=== PATIENT | female | born 1990 | race American Indian/Alaskan Native ===

== ENCOUNTER 2017-06-16 06:14 | Observation (INO) | payer MEDICAID ==
[2017-06-16] MEDS ORDERED: Lactated Ringers 1,000 ML IV ONE (06:30)
[2017-06-16 07:24] LABS: CHLORIDE,CL 105 mmol/L (101-111); SODIUM,NA 134 mmol/L (135-145)
[2017-06-16] MEDS ORDERED: Acetaminophen 325 MG Tab PO PRN (08:00)
[2017-06-16] MEDS ORDERED: Ondansetron 4 MG/2 ML SDV IV PRN (08:00)
[2017-06-16] MEDS ORDERED: Tranexamic Acid 1,000 MG in Sodium Chloride 0.9% 100 ML IV PRN (08:00)
[2017-06-16] MEDS ORDERED: Docusate Sodium 100 MG Cap PO PRN (08:00)
[2017-06-16] MEDS: Lactated Ringers 1,000 ML IV SCH ×2 (08:30→16:47)
[2017-06-16] MEDS: Aztreonam 1 GM in Sodium Chloride 0.9% 100 ML IV SCH ×2 (10:00→16:47)
--- NOTE | 2017-06-16 15:13 | HP ---
PATIENT IDENTIFICATION: Cori Higginbotham is a 26-year-old, G7, P5-0-1-5, previous x5, intrauterine around 20 weeks by what she says with ultrasound earlier this week, who presents with abdominal pain. HISTORY OF PRESENT ILLNESS: The patient awoke with abdominal pain on the right side of her abdomen in the flank radiating down anteriorly, severe enough that it woke her, associated with some vomiting, and is constant in nature. Associated with this, she describes occasional contractions felt. To put this in context, she has had 5 previous C-sections. She has history of drug use in the past and admits to taking some Percocet for her too and believes her coffee was laced with methamphetamines when addressing her positive drug screen. She denies any fevers currently. Records were called for, reviewed as below, and supplemented by patient history. ALLERGIES: Penicillin leads to hives. Has never had any cephalosporins by my record's review. PAST MEDICAL/PAST SURGICAL HISTORY: History of x5. No other surgeries elicited. She has had past medical history of chickenpox in the past. Large for gestational age fetus. Chlamydia in 2008. FAMILY HISTORY: Mother and maternal grandmother with breast cancer. Diabetes in maternal grandmother. Hypertension in mother and maternal grandmother. Negative family history of defects, anesthesia problems, bleeding problems, or inflammatory bowel disease. SOCIAL HISTORY: The patient lives in the [facility] with her male partner and her children. She initially denied drug use, but then describes the above under HPI when addressing her positive drug screen. She denies smoking at this time. MEDICATIONS: 1. vitamins and Macrobid from [facility] earlier this week. 2. Admits to drug use as above. REVIEW OF SYSTEMS: Otherwise, fully reviewed and felt to be noncontributory. The patient denies any spotting, bleeding, or leaking. When further asked with serial evaluations, she denies any contractions. She denies any problems with bowel or bladder habits. No blood in her stools. No chills or sweats. No chest pain. No shortness of breath. Otherwise, review of systems reviewed fully and felt to be noncontributory. OBJECTIVE: Vital Signs: Blood pressure 92/57, heart rate 72, and temperature 97.5. Appearance: Female, appears her stated age, curled up in a ball, in left lateral decubitus position but unable to straighten out for ultrasound and evaluations with minimal elicited pain. HEENT: Head is atraumatic. EOMs intact. PERRLA. No scleral icterus. No otorhinorrhea. Mucous membranes are moist. Neck: No obvious tenderness. Lungs: Clear to auscultation bilaterally. No increased work of breathing. Heart: S1 and S2. Regular rate and rhythm. Abdomen: Gravid. Zach's indeterminate. Minimally tender in the right side of the abdomen, mid abdomen area. No rebound, rigidity, or guarding. No other organomegaly, pulsatile masses, or obvious hernias. Back: Evaluation does reveal right-sided flank pain with percussion. Genitourinary: Normal external female genitalia. Normal position and presentation of the urethra. Vaginal exam reveals her to be closed, thick, and high. No obvious pain with vaginal exam. No CMT. Extremities: No peripheral edema. Deep tendon reflexes 2 to 3/4 bilaterally and symmetric in lower extremities. Psychiatric: Mood and affect are congruent. Judgement and insight are intact. Skin: Without any cyanosis, clubbing, or jaundice. heart tones were Dopplered, within a normal range. Please see nurse's note in regard to this. Tocometer reveals no obvious evidence of contractions. IMAGING: Ultrasound reviewed by my eyes and evaluated with the tech doing it does reveal what appears to be a posterior placenta. No obvious previa. SARIKA 14.4 and puts her dates at 20 weeks and 5 days. Further ultrasound was done of the right upper quadrant and right kidney region, did reveal a kidney stone. The right kidney by tech did reveal no concerns for hydronephrosis. LABORATORY DATA: White cell count 11.1, hemoglobin 10.2, platelets 240. CMP remarkable for low sodium at 134, potassium 3.2, BUN 5, creatinine 0.4, calcium 8.1, total protein 6.3, and albumin 2.8. Urinalysis with trace intact blood, positive nitrites, small leukocyte esterase, 20 to 30 white cells, and many epithelial and bacterial cells. Urine drug screen positive for oxycodone, methamphetamine, amphetamine, and THC. ASSESSMENT: 1. Intrauterine at 20 and 5/7 weeks' per ultrasound upon admit. 2. Abdominal pain/flank pain, suspect early pyelonephritis based on the patient's symptoms. 3. The patient has been on Macrobid, suspected urinary tract infection with first OB visit at [facility] earlier this week. This would not cover if she develops pyelonephritis. We will culture her urine, and due to her allergy of hives to penicillins but no documented cephalosporin use, we will use aztreonam 1 g IV q.8h. Culture her urine. Continue IV fluids and follow closely. 4. Previous x5. 5. Positive urine drug screen for oxycodone, methamphetamine, amphetamine, and THC with confirmatory to be testing and tramadol ordered as well. 6. G7, P5-0-1-5. PLAN: Admit. IV fluids. Advance diet. Follow closely heart tones every shift. Please see orders for further details as well. She will be currently admitted as observation status. The patient understands and agrees with the above treatment plan. Repeat labs in the morning. Please see orders as well. [facility] /[id number]
[2017-06-17] MEDS: Aztreonam 1 GM in Sodium Chloride 0.9% 100 ML IV SCH ×2 (01:11→09:15)
[2017-06-17] MEDS: Lactated Ringers 1,000 ML IV SCH (01:12)
[2017-06-17 06:34] LABS: CHLORIDE,CL 108 mmol/L (101-111); SODIUM,NA 134 mmol/L (135-145)
[2017-06-17 09:53] VITALS: BP 96/50
--- NOTE | 2017-06-17 14:02 | DISCH ---
DATE: 06/17/2017 SUBJECTIVE: The patient was seen on 06/17/2017 at [facility]. The patient is hospital day #2. This is a G7, P5, with a history of 5 C-sections, at 20 weeks and 6 days dated by an ultrasound done yesterday, who is admitted for pyelonephritis. She was given aztreonam 1 g every 8 hours. The patient this morning is having less discomfort and no obstetrical complaints. PHYSICAL EXAMINATION: Vital Signs: She is afebrile. Heart rate 69 to 88, blood pressure 86 to 109 over 45 to 63, respiratory rate 16 to 20, and O2 saturations 99%. Abdomen: Benign. heart tones were obtained. LABORATORY DATA: The patient's white count has gone down this morning from 11.1 to 6.3. She does have mild anemia with a hemoglobin of 9.5. Her potassium has also come up from 3.3 to 3.7. The rest of her chemistries are normal. Yesterday, the patient did have a positive UDS for oxycodone, THC, amphetamines, and methamphetamines, the confirmation is pending. ASSESSMENT AND PLAN: Intrauterine at 20 weeks and 6 days with resolving pyelonephritis, history of five C-sections. I did strongly encourage the patient to make an appointment next week with [facility] for continuing with care. labs were done at [facility]. We are still awaiting those records. However, I feel as though she is now safe for discharge home on p.o. antibiotics. Therefore, I did give a prescription for Macrobid 100 mg p.o. b.i.d. for 7 days. She will call first thing in Monday and make an appointment to continue with care, and we will await the confirmation of her UDS. [facility] /[id number] LYNETTE
== END 2017-06-17 10:47 | disposition home or self-care (01) ==
LOC: DL.OBCHECK 06:14 → DL.MS 06:30 → EEVIPCON 06:30 → DL.MS 08:00 → UNDOADMOB 08:00
PROVIDERS: ADMIT Family Medicine; ATTEND Family Medicine
DX: O23.02 Infections of kidney in pregnancy, second trimester (principal); Z3A.20 20 weeks gestation of pregnancy; Z98.890 Other specified postprocedural states; Z88.0 Allergy status to penicillin
CPT/HCPCS: 36415; 76815; 80048; 80053; 80305; 80307; 81001; 82150; 85025; 85027; 86850; 86900; 86901; 87086; 87088; 87186; A9270; G0480; J7050; J7120; 96361; 96365; 96366; 96376; G0378; S0073

== ENCOUNTER 2017-06-29 19:50 | Emergency (ER) | payer MEDICAID ==
[2017-06-29] MEDS ORDERED: Sodium Chloride 0.9% 1,000 ML IV ONE (19:55)
[2017-06-29 20:25] LABS: ANION GAP 12.8; CHLORIDE,CL 105 mmol/L (101-111); SODIUM,NA 134 mmol/L (135-145)
[2017-06-29 21:43] VITALS: BP 106/73
--- NOTE | 2017-06-29 22:33 | EDM.PDOC ---
ED HPI GENERAL MEDICAL PROBLEM - General Chief Complaint: Abdominal Pain Stated Complaint: rt flank pain Time Seen by Provider: 06/29/17 19:50 Source of Information: Reports: Patient, EMS History Limitations: Reports: No Limitations - History of Present Illness INITIAL COMMENTS - FREE TEXT/NARRATIVE: ED via [facility] with c/o right flank and lower abdominal pain. [address] [facility]. Patient picked up today while walking to follow up check for recent UTI and kidney infection. No vomiting or fever, has noted intermittent pink discharge. Within few minutes of arrival patient resting comfortably, no longer yelling. Visiting with svp chief marketing officer. Right Lower Abdomen Pain Score (Numeric/FACES): 8 - Related Data Allergies Allergy/AdvReac Type Severity Reaction Status Date / Time Penicillins Allergy Rash Verified 06/29/17 19:54 Home Meds: Home Meds Vit #108/Iron/FA [ One Tablet] 1 tab PO DAILY 01/28/14 [History ] Nitrofurantoin Monohyd/M-Cryst [Macrobid 100 mg Capsule] 100 mg PO BID 06/29/17 [History] Past Medical History - Past Health History Medical/Surgical History: Denies Medical/Surgical History HEENT History: Reports: None Cardiovascular History: Reports: None Respiratory History: Reports: None Gastrointestinal History: Reports: Cholelithiasis Genitourinary History: Reports: UTI, Recurrent [employer] History: Reports: , Spontaneous , Other (See Below) Other OB/BYN History: CHLAMYDIAL INFECTION OF LOWER GENITOURINARY TRACT Musculoskeletal History: Reports: None Neurological History: Reports: None Psychiatric History: Reports: None Endocrine/Metabolic History: Reports: None Hematologic History: Reports: Anemia Other Hematologic History: ANEMIA IN Immunologic History: Reports: None Oncologic (Cancer) History: Reports: None Dermatologic History: Reports: None - Infectious Disease History Infectious Disease History: Reports: MRSA - Past Surgical History Head Surgeries/Procedures: Reports: None HEENT Surgical History: Reports: None Cardiovascular Surgical History: Reports: None Respiratory Surgical History: Reports: None GI Surgical History: Reports: None Female Surgical History: Reports: Section, D&C Neurological Surgical History: Reports: None Musculoskeletal Surgical History: Reports: None Oncologic Surgical History: Reports: None Dermatological Surgical History: Reports: None Social & Family History - Family History Family Medical History: Noncontributory - Tobacco Use Smoking Status *Q: Never Smoker Years of Tobacco use: 7 Packs/Tins Daily: 0.5 Used Tobacco, but Quit: No Month/Year Tobacco Last Used: Second Hand Smoke Exposure: No - Caffeine Use Caffeine Use: Reports: None - Alcohol Use Days Per Week of Alcohol Use: 0 - Recreational Drug Use Recreational Drug Use: No Drug Use in Last 12 Months: No Recreational Drug Type: Reports: Amphetamines (Speed), Marijuana/Hashish, Methamphetamine Recreational Drug Use Frequency: Patient Refuses To Answer ED ROS GENERAL - Review of Systems Review Of Systems: See Below Constitutional: Denies: Fever, Chills HEENT: Reports: No Symptoms Respiratory: Reports: No Symptoms Cardiovascular: Reports: No Symptoms GI/Abdominal: Reports: Abdominal Pain (generalized) : Reports: Flank Pain. Denies: Frequency, Irregular Menses, Pain, Urgency Musculoskeletal: Reports: No Symptoms Skin: Reports: No Symptoms Neurological: Reports: No Symptoms ED EXAM, RENAL/ - Physical Exam Exam: See Below Exam Limited By: No Limitations General Appearance: Alert, Anxious Eye Exam: Bilateral Eye: EOMI Ears: Normal External Exam Nose: Normal Inspection Throat/Mouth: Normal Inspection Head: Atraumatic, Normocephalic Neck: Normal Inspection Respiratory/Chest: No Respiratory Distress, Lungs Clear, Normal Breath Sounds Cardiovascular: Normal Peripheral Pulses, Regular Rate, Rhythm GI/Abdominal: Normal Bowel Sounds, Non-Tender Back Exam: CVA Tenderness (R) (intermittent with percussion) Extremities: Normal Inspection, Normal Range of Motion Neurological: Alert, Oriented, Normal Cognition Psychiatric: Normal Affect Skin Exam: Warm, Dry, Intact, Normal Color Course - Vital Signs Last Recorded V/S: Last Vital Signs Temp 98.7 F 06/29/17 19:50 Pulse 70 06/29/17 21:42 Resp 18 06/29/17 21:42 BP 106/73 06/29/17 21:42 Pulse Ox 98 06/29/17 21:42 - Orders/Labs/Meds Orders: Active Orders 24 hr Category Date Time Status OB Ltd 1 or More Fetus [US] Urgent Exams 06/29/17 20:31 Taken DRUG SCREEN URINE BIORAD [URCHEM] Stat Lab 06/29/17 20:03 Ordered UA W/MICROSCOPIC [URIN] Stat Lab 06/29/17 20:03 Ordered Labs: Laboratory Tests 06/29/17 06/29/17 06/29/17 Range/Units 20:00 20:00 20:00 WBC 6.9 (5.0-10.0) 10^3/uL RBC 3.54 L (4.2-5.4) 10^6/uL Hgb 10.3 L (12.0-16.0) g/dL Hct 30.7 L (37.0-47.0) % MCV 86.7 (80-100) fL MCH 29.1 (27.0-34.0) pg MCHC 33.6 (33.0-35.0) g/dL Plt Count 278 (150-450) 10^3/uL Neut % (Auto) 58.9 (42.2-75.2) % Lymph % (Auto) 31.3 (20.5-50.1) % [place] % (Auto) 7.0 (2-8) % Eos % (Auto) 2.8 (1.0-3.0) % Baso % (Auto) 0.0 (0.0-1.0) % Sodium 134 L (135-145) mmol/L Potassium 3.8 (3.6-5.0) mmol/L Chloride 105 (101-111) mmol/L Carbon Dioxide 20.0 L (21.0-31.0) mmol/L Anion Gap 12.8 BUN 8 (7-18) mg/dL Creatinine 0.3 L (0.6-1.3) mg/dL Est Cr Clr Drug Dosing 320.40 mL/min Estimated GFR (MDRD) > 60 BUN/Creatinine Ratio 26.66 Glucose 113 H (74-105) mg/dL Lactic Acid 1.5 (0.5-2.2) mmol/L Calcium 8.1 L (8.4-10.2) mg/dl Total Bilirubin 0.6 (0.2-1.0) mg/dL AST 21 (10-42) IU/L ALT 11 (10-60) IU/L Alkaline Phosphatase 105 (42-121) IU/L Total Protein 6.9 (6.7-8.2) g/dl Albumin 3.0 L (3.2-5.5) g/dl Globulin 3.9 Albumin/Globulin Ratio 0.77 Amylase 119 H (28-100) U/L Urine Color (YELLOW) Urine Appearance (CLEAR) Urine pH (5.0-9.0) Ur Specific Harrod (1.005-1.030) Urine Protein (NEGATIVE) Urine Glucose (UA) (NEGATIVE) Urine Ketones (NEGATIVE) Urine Occult Blood (NEGATIVE) Urine Nitrite (NEGATIVE) Urine Bilirubin (NEGATIVE) Urine Urobilinogen (0.2-1.0) mg/dL Ur Leukocyte Esterase (NEGATIVE) Urine RBC /HPF Urine WBC (0-5/HPF) /HPF Ur Epithelial Cells /HPF Amorphous Sediment (0/HPF) /HPF Urine Bacteria (0-FEW/HPF) /HPF Urine Opiates Screen (NEGATIVE) Ur Oxycodone Screen (NEGATIVE) Urine Methadone Screen (NEGATIVE) Ur Barbiturates Screen (NEGATIVE) U Tricyclic Antidepress (NEGATIVE) Ur Phencyclidine Scrn (NEGATIVE) Ur Amphetamine Screen (NEGATIVE) U Methamphetamines Scrn (NEGATIVE) Urine MDMA Screen (NEGATIVE) U Benzodiazepines Scrn (NEGATIVE) Urine Cocaine Screen (NEGATIVE) U Marijuana (THC) Screen (NEGATIVE) 06/29/17 06/29/17 Range/Units 20:03 20:03 WBC (5.0-10.0) 10^3/uL RBC (4.2-5.4) 10^6/uL Hgb (12.0-16.0) g/dL Hct (37.0-47.0) % MCV (80-100) fL MCH (27.0-34.0) pg MCHC (33.0-35.0) g/dL Plt Count (150-450) 10^3/uL Neut % (Auto) (42.2-75.2) % Lymph % (Auto) (20.5-50.1) % [place] % (Auto) (2-8) % Eos % (Auto) (1.0-3.0) % Baso % (Auto) (0.0-1.0) % Sodium (135-145) mmol/L Potassium (3.6-5.0) mmol/L Chloride (101-111) mmol/L Carbon Dioxide (21.0-31.0) mmol/L Anion Gap BUN (7-18) mg/dL Creatinine (0.6-1.3) mg/dL Est Cr Clr Drug Dosing mL/min Estimated GFR (MDRD) BUN/Creatinine Ratio Glucose (74-105) mg/dL Lactic Acid (0.5-2.2) mmol/L Calcium (8.4-10.2) mg/dl Total Bilirubin (0.2-1.0) mg/dL AST (10-42) IU/L ALT (10-60) IU/L Alkaline Phosphatase (42-121) IU/L Total Protein (6.7-8.2) g/dl Albumin (3.2-5.5) g/dl Globulin Albumin/Globulin Ratio Amylase (28-100) U/L Urine Color Yellow (YELLOW) Urine Appearance Cloudy (CLEAR) Urine pH 7.5 (5.0-9.0) Ur Specific Harrod 1.020 (1.005-1.030) Urine Protein Negative (NEGATIVE) Urine Glucose (UA) Negative (NEGATIVE) Urine Ketones Negative (NEGATIVE) Urine Occult Blood Negative (NEGATIVE) Urine Nitrite Negative (NEGATIVE) Urine Bilirubin Negative (NEGATIVE) Urine Urobilinogen 1.0 (0.2-1.0) mg/dL Ur Leukocyte Esterase Negative (NEGATIVE) Urine RBC Not seen /HPF Urine WBC 5-10 H (0-5/HPF) /HPF Ur Epithelial Cells Many H /HPF Amorphous Sediment Few (0/HPF) /HPF Urine Bacteria Many H (0-FEW/HPF) /HPF Urine Opiates Screen Negative (NEGATIVE) Ur Oxycodone Screen Negative (NEGATIVE) Urine Methadone Screen Negative (NEGATIVE) Ur Barbiturates Screen Negative (NEGATIVE) U Tricyclic Antidepress Negative (NEGATIVE) Ur Phencyclidine Scrn Negative (NEGATIVE) Ur Amphetamine Screen Negative (NEGATIVE) U Methamphetamines Scrn Negative (NEGATIVE) Urine MDMA Screen Negative (NEGATIVE) U Benzodiazepines Scrn Negative (NEGATIVE) Urine Cocaine Screen Negative (NEGATIVE) U Marijuana (THC) Screen Positive H (NEGATIVE) Meds: Medications Discontinued Medications Generic Name Dose Route Start Last Admin Trade Name Freq PRN Reason Stop Dose Admin Sodium Chloride 1,000 mls @ 999 mls/hr 06/29/17 19:55 06/29/17 20:08 Normal Saline IV 06/29/17 20:55 999 mls/hr .BOLUS ONE Administration - Radiology Interpretation Free Text/Narrative:: OB US IUP 23 weeks, No placenta previa Departure - Departure Time of Disposition: 22:29 Disposition: Home, Self-Care 01 Condition: Good Clinical Impression: Right flank pain, Second trimester - Discharge Information Instructions: Flank Pain, [id number] Referrals: Carmine Merino MD [Primary Care Provider] - Forms: ED Department Discharge Additional Instructions: Follow up with OB care drink lots of fluid - My Orders Last 24 Hours: My Active Orders 06/29/17 20:03 DRUG SCREEN URINE BIORAD [URCHEM] Stat UA W/MICROSCOPIC [URIN] Stat 06/29/17 20:31 OB Ltd 1 or More Fetus [US] Urgent - Assessment/Plan Last 24 Hours: My Active Orders 06/29/17 20:03 DRUG SCREEN URINE BIORAD [URCHEM] Stat UA W/MICROSCOPIC [URIN] Stat 06/29/17 20:31 OB Ltd 1 or More Fetus [US] Urgent
== END 2017-06-29 22:35 | disposition home or self-care (01) ==
LOC: DL.ED 19:50
DX: O99.89 Other specified diseases and conditions complicating pregnancy, childbirth and the puerperium (principal); R10.31 Right lower quadrant pain; Z88.0 Allergy status to penicillin; Z3A.23 23 weeks gestation of pregnancy
CPT/HCPCS: 36415; 76815; 80053; 80305; 81001; 82150; 83605; 85025; 96360; 99284; J7030; 76817

== ENCOUNTER 2017-10-12 20:28 | Inpatient (IN) | payer MEDICAID ==
[2017-10-12] MEDS: Lactated Ringers 1,000 ML IV SCH ×2 (21:20→22:40)
[2017-10-12] MEDS ORDERED: Lactated Ringers 1,000 ML IV SCH (21:20)
[2017-10-12] MEDS ORDERED: Naloxone 2 MG/2 ML Syringe IVPUSH PRN (21:56)
[2017-10-12] MEDS ORDERED: Acetaminophen 325 MG Tab PO PRN (21:56)
[2017-10-12] MEDS ORDERED: Misoprostol 400 MCG (4 X 100 MCG TAB) RECTAL PRN (21:56)
[2017-10-12] MEDS ORDERED: Tranexamic Acid 1,000 MG in Sodium Chloride 0.9% 100 ML IV PRN (21:56)
[2017-10-12] MEDS ORDERED: ePHEDrine 50 MG/ML SDV IVPUSH PRN (21:56)
[2017-10-12] MEDS ORDERED: diphenhydrAMINE 50 MG/ML SDV IVPUSH PRN (21:56)
[2017-10-12] MEDS ORDERED: Acetaminophen/oxyCODONE 325-5 MG Tab PO PRN (21:56)
[2017-10-12] MEDS ORDERED: Clindamycin Phosphate 900 MG in Sodium Chloride 0.9% 100 ML IV ONE (21:56)
[2017-10-12] MEDS ORDERED: Ondansetron 4 MG/2 ML SDV IV PRN (21:56)
[2017-10-12] MEDS ORDERED: Diphtheria,Pertussis(Acell),Tetanus Vaccine 0.5 ML SDV IM ONE (21:56)
[2017-10-12] MEDS ORDERED: Methylergonovine 0.2 MG/1 ML Amp IM PRN (21:56)
[2017-10-12] MEDS ORDERED: Citric Acid/Sodium Citrate Solution 30 ML Cup PO ONE (21:56)
[2017-10-12] MEDS ORDERED: Carboprost Tromethamine 250 MCG/1 ML Amp IM ONE (21:56)
[2017-10-12] MEDS ORDERED: Clindamycin Phosphate 900 MG/6 ML SDV ONE (22:11)
[2017-10-12] MEDS ORDERED: Oxytocin/Normal Saline 30 UNIT/500 ML BAG IV SCH (22:15)
[2017-10-12] MEDS ORDERED: Sodium Chloride 0.9% 100 ML ONE (22:19)
[2017-10-12] MEDS ORDERED: Gentamicin 40 MG/ML 2 ML Vial ONE (22:28)
[2017-10-12] MEDS ORDERED: Gentamicin 420 MG in Sodium Chloride 0.9% 100 ML IV ONE (22:30)
[2017-10-13] MEDS: Lactated Ringers 1,000 ML IV SCH ×3 (02:06→18:14)
[2017-10-13] MEDS: Ketorolac 30 MG/ML SDV IVPUSH SCH ×3 (06:31→18:09)
--- NOTE | 2017-10-13 09:19 | HP ---
PATIENT IDENTIFICATION: Cori Higginbotham is a 27-year-old, G7, P5-0-1-5, intrauterine at 37 and 4/7 to 37 and 5/7 weeks, previous x5, request repeat low transverse , who presents with contraction and cervical change. HISTORY OF PRESENT ILLNESS: The patient states contractions started about 3:00 p.m., on date of admission. She quit eating food at that point in time. She has had some liquids recently. However, contractions have increased in frequency and intensity to the point that they are coming every 2 to 5 minutes, rated 8/10, felt in the lower abdomen, causing her breathe through them. Nothing seems to make them better. Time makes them worse. Associated with this is pinkish discharge. She was initially evaluated by the OB nurse and found to be closed. Upon my evaluation, within an hour, she was 1.5 to 2 cm dilated, and anterior cervix compared to posterior cervix by nurse evaluation. Because of this as well as her risk factors and previous x5, shared decision was made to proceed with repeat low transverse . She was not felt to be a transfer candidate due to her high risk factors as well. This was discussed with her and she understands agrees and wished to deliver here. The patient states that she has been worked up with blood tests and imaging. Records were called for, reviewed as below and supplemented by the patient's history. ANTEPARTUM LABORATORY DATA: Reveal her hemoglobin to be 9.9 today. Reviewing charts from both [facility] and [place], I cannot find antepartum labs, so we will do them. Her GBS on 09/20/2017, was negative. OBSTETRICAL HISTORY: 1. In 2016, she had a D and C for spontaneous miscarriage. No blood transfusion required. 2. On 06/06/2014: 37 and 1/7 weeks, delivered male. Repeat low transverse C- section. 3. On 12/19/2011: Female, delivered via repeat low transverse at 37 weeks. Weighing 3459. 4. On 04/30/2010: 37 and 5/7 weeks, delivered a female, repeat low transverse . Weighing 3175 g. Noted to have some scarring that was prominent. 5. On 08/30/2008: 38 and 1/7 weeks, repeat low transverse , yielding a male weighing 4082 g. 6. On 05/26/2016: 42 weeks, delivered male, primary low transverse . Weighing 3629 g. ALLERGIES: Penicillins lead to lip swelling and rash per patient's mother. MEDICATIONS: 1. Ranitidine. 2. vitamins. 3. Oxycodone for teeth, given a couple days ago after seeing a dentist. PAST SURGICAL HISTORY: Five previous and a D and C as above. PAST MEDICAL HISTORY: No hospitalizations outside of her deliveries other than for pyelonephritis in May to June of 2017 during this . SOCIAL HISTORY: Recently relocated from [facility] to [facility]. Lives with kids and her boyfriend, Татьяна Martinez. Her 5 kids live with her. The patient describes using drugs with THC yesterday. Last meth use around September 19, and being on oxycodone now. Quit smoking 2 months ago. FAMILY HISTORY: No anesthesia or bleeding problems. Diabetes mellitus in maternal grandmother. Mother with breast cancer in 20s to 30s. REVIEW OF SYSTEMS: Otherwise, reviewed fully and felt to be only contributory for the above. OBJECTIVE: Vital Signs: Blood pressure 119/77, heart rate 104, temperature 97.5. Appearance: Female appears her stated age, acting appropriate for age, answering questions appropriately, but breathing through contractions, and clutching her abdomen when she has her contractions. HEENT: Head is atraumatic. EOMs intact. PERRLA. No scleral icterus. No obvious otorhinorrhea. Mucous membranes are moist. Neck: No obvious tenderness. Lungs: Clear to auscultation bilaterally. No increased work of breathing. Heart: S1 and S2, regular rate and rhythm. Abdomen: Gravid, Zach's indeterminate, nontender, nondistended. Bowel sounds positive. No other organomegaly, pulsatile masses, or obvious hernias. No rebound, rigidity, or guarding, monitors applied Genitourinary: Normal external female genitalia. Normal position and presentation of the urethra. Vaginal exam reveals her to be 1.5 to 2 cm, anterior, 60% effaced, vertex suspected. Extremities: Trace pedal edema. Deep tendon reflexes 2/4 bilaterally and symmetric in the lower extremities. Psychiatric: Mood and affect are congruent. Judgment and insight are intact. Skin: Without any cyanosis, clubbing, or jaundice. NST is found to be reactive and reassuring. heart tone baseline 135 range. Contractions coming every 2 to 5 minutes. LABORATORY DATA: White cell count 7.6, hemoglobin 9.9, platelets 265. Urine drug screen is positive for THC and methamphetamines. ASSESSMENT: 1. Intrauterine at 37 and 4/7 weeks by 20 and 5/7 weeks ultrasound, 37 and 5/7 weeks by last menstrual period. 2. Previous x5, requests repeat low transverse . 3. Contractions with cervical change-labor. 4. Group B Streptococcus negative on 09/20/2017, done through [facility]. 5. Limited care. 6. Positive urine drug screen upon admission with methamphetamine and marijuana with history of positive drug screens in the past during the . 7. Anemia of , hemoglobin 9.9. 8. History of pyelonephritis in earlier in May. 9. G7, P5-0-1-5. PLAN: Described as above with the patient in labor, 5 previous C-sections, requests repeat low transverse . She is felt not to be a transfer candidate with her risk factors, as well as requesting to be delivered here. I did discuss with her the risks, benefits, alternatives, and complications of C- section, including but not limited to, infection, bleeding, damage to internal organs such as bowel, bladder, tubes, uterus, ovaries, sometimes fetus rarely needing a blood transfusion or further surgery, and rarer maternal or . She understands, agrees, and wishes to proceed. Verbal and written consent obtained. Questions were answered. We will proceed as soon as OR crew is ready and available. The patient understands and agrees with the above treatment plan. [facility] /[id number]
--- NOTE | 2017-10-13 09:49 | OR ---
DATE: 10/12/2017 PREOPERATIVE DIAGNOSES: 1. Intrauterine at 37 and 4/7 weeks by 20 and 5/7 weeks ultrasound, 37 and 5/7 weeks by last menstrual period. 2. Contractions with cervical change-labor upon admission. 3. Previous x5, requests repeat low transverse . 4. Group B Streptococcus negative on 09/20/2017 in [place]. 5. Limited care. 6. Positive UDS upon admission for methamphetamines and THC with history of positive drug screens for this as well as opioids. 7. Anemia of . Hemoglobin 9.9 upon admission. 8. History of pyelonephritis in back in May 2017. 9. G7, P5-0-1-5. POSTOPERATIVE DIAGNOSES: 1. Intrauterine at 37 and 4/7 weeks by 20 and 5/7 weeks ultrasound, 37 and 5/7 weeks by last menstrual period, delivered. 2. Contractions with cervical change-labor upon admission. 3. Previous x5, requests repeat low transverse . 4. Group B Streptococcus negative on 09/20/2017 in [place]. 5. Limited care. 6. Positive UDS upon admission for methamphetamines and THC with history of positive drug screens for this as well as opioids. 7. Anemia of . Hemoglobin 9.9 upon admission. 8. History of pyelonephritis in back in May 2017. 9. G7, P5-0-1-5. 10.Scar tissue that was marked to severe superficial to the fascia, and mild deep to the fascial region, requiring lysis of adhesions. PROCEDURE PERFORMED: NST followed by repeat low transverse , and lysis of adhesions. ANESTHESIA: Spinal. ESTIMATED BLOOD LOSS: 600 mL. IV FLUIDS: 1800 mL lactated Ringer's. 300 mL of Pitocin. URINE OUTPUT: 500 mL clear yellow. START: 2309 hours. UTERINE INCISION: 2318 hours. DELIVERY: 2319 hours. STOP: 2350 hours. FINDINGS: Male. scores and weight pending. DESCRIPTION OF PROCEDURE IN DETAIL: After proper consent was obtained, the patient was brought to the operating room where spinal anesthetic was administered. Mary was placed in preop under sterile conditions. Abdomen was prepped and draped in the normal sterile fashion with patient placed in supine position with left lateral tilt. A skin incision was then made over the lower abdomen in transverse Pfannenstiel- type fashion over previous scar and this was carefully dissected down to the layer of the fascia using sharp dissection. There was eredctdk-ed-mukjpj adhesions as well as scar tissue through this area. lysis of adhesions was done. Care was made to stay laterally and the fascia was scored over this area. Using this tissue plane, fascial incision was then extended in transverse fashion using curved Bansal's. Juan M clamps x2 were used to grasp the superior aspect of fascia and rectus muscle was dissected from the fascia using sharp and blunt technique. In a similar fashion, Juan M clamps x2 were used to grasp the inferior portion of the incision and rectus and pyramidalis muscles were dissected from the fascia using sharp and blunt technique. The rectus muscles were in midline with blunt technique. Abdominal cavity was then entered in blunt technique. The incision was extended superiorly and inferiorly with blunt technique. adhesions noted subfascially and these were lysed under direct visualization with electrocautery. Victor Manuel O large retractor was then introduced and used. Vesicouterine peritoneum was identified and incised in transverse fashion with Metzenbaum scissors and bladder flap was made digitally. A curvilinear incision was made on the lower uterine segment at 2318 hours. Uterus was entered sharply. Clear fluid returned. The uterine incision was then extended in transverse fashion using blunt technique. vertex was then delivered through the incision, followed by rest of the infant without difficulty. Mouth and nares were suctioned. Cord was doubly clamped and cut, and the was brought to team. Then, approximately 10 mL of cord blood was obtained for labs as well as a section of cord after the placenta was delivered. Placenta was then delivered with gentle cord traction and fundal massage. The uterine cavity was then cleared of all blood clots and debris with lap sponge. Stearns clamps were then used to grasp the uterine incision. This was closed in a running locked fashion and tied at lateral margins. Left lateral portion of the incision and left midline portion of the incision revealed bleeding, 3 figure-of - eight stitches were applied over these areas and hemostasis reassured. First inspection of the uterine incision revealed hemostasis. Victor Manuel O retractor was then removed, and paracolic gutters were then cleared of all blood clots and debris with lap sponge. The anterior cul-de-sac was then irrigated copiously and all blood clots and debris were removed. Second and final inspection of the uterine incision and anterior cul-de-sac revealed hemostasis. The rectus muscles were then reapproximated in the midline with a figure-of- eight stitch using 1-0 Vicryl with the use of a fish to hold the omentum out of the way. This was subsequently removed after use. Subfascial tissues were then found to be hemostatic. Fascia was closed in a running fashion and tied at lateral margins with 0 looped PDS. Subcutaneous tissue was irrigated copiously, hemostasis reassured. Skin was reapproximated with medium loree. Sterile Aquacel dressing was applied. Uterine fundus was firm and massaged at the conclusion of the case, -2 below umbilicus. No immediate complications were noted. Sponge, lap, and needle counts were correct. The patient received 900 mg of clindamycin and 420 mg of gentamicin preoperatively, Pitocin per protocol, and received Toradol at the conclusion of the case for pain control. Mother and are currently stable time of dictation. [facility] /[id number] [facility]
[2017-10-13] MEDS: Docusate Sodium 100 MG Cap PO PRN ×2 (10:10→20:32)
[2017-10-13] MEDS: Simethicone 80 MG Tab.Chew PO SCH ×4 (10:10→20:34)
[2017-10-13] MEDS: Ferrous Sulfate 325 MG Tab PO SCH (10:10)
--- NOTE | 2017-10-13 10:13 | PN ---
DATE: 10/12/2017 As part of the evaluation with her history and physical, exam was done. Normal external female genitalia. Normal position and presentation of urethra. Speculum exam was done as she was complaining of leaking, negative for pooling. Cervix was unable to be localized and then vaginal exam done thereafter revealing cervical change. PLAN: Please see other notes for further details. [facility] /[id number]
--- NOTE | 2017-10-13 13:40 | PN ---
DATE: 10/13/2017 Postoperative day #1. SUBJECTIVE: The patient is tolerating p.o.'s. Mary is still in. She has not ambulated yet. Pain is under control. OBJECTIVE: Vital Signs: Temperature 98.4, heart rate 88, blood pressure 110/72, and respiratory rate is 18. I's and O's have been adequate. Lungs: Clear to auscultation bilaterally. Heart: S1 and S2. Regular rate and rhythm. Abdomen: Firm uterus -2 to -3 below umbilicus. Aquacel dressing is dry and intact. LABORATORY DATA: White cell count 10.2, hemoglobin 8.8 compared to predelivery hemoglobin 9.9, and platelets 231. ASSESSMENT AND PLAN: 1. Postoperative day #1 status post repeat low-transverse . 2. Anemia of acute blood loss. Hemoglobin has dropped down to 8.8. At this point in time, vital signs are stable. The patient is asymptomatic. We will continue to follow clinically and closely. [facility] /[id number]
[2017-10-13] MEDS: Acetaminophen/oxyCODONE 325-5 MG Tab PO PRN (20:26)
[2017-10-14] MEDS: Acetaminophen/oxyCODONE 325-5 MG Tab PO PRN ×6 (01:10→21:36)
[2017-10-14] MEDS: Ibuprofen 800 MG Tab PO PRN (10:28)
[2017-10-14] MEDS: Docusate Sodium 100 MG Cap PO PRN ×2 (10:29→21:35)
[2017-10-14] MEDS: Ferrous Sulfate 325 MG Tab PO SCH (10:29)
[2017-10-14] MEDS: Simethicone 80 MG Tab.Chew PO SCH ×4 (10:30→21:35)
[2017-10-15] MEDS: Ibuprofen 800 MG Tab PO PRN ×2 (01:47→17:05)
[2017-10-15] MEDS: Acetaminophen/oxyCODONE 325-5 MG Tab PO PRN ×5 (01:47→20:33)
[2017-10-15] MEDS: Simethicone 80 MG Tab.Chew PO SCH ×4 (08:13→20:34)
[2017-10-15] MEDS: Ferrous Sulfate 325 MG Tab PO SCH (08:13)
[2017-10-15] MEDS: Prenatal Multivitamin with Calcium/Folic Acid/Iron Tab PO SCH (08:13)
[2017-10-15] MEDS: Docusate Sodium 100 MG Cap PO PRN ×2 (08:14→20:34)
[2017-10-16] MEDS: Ibuprofen 800 MG Tab PO PRN (00:36)
[2017-10-16] MEDS: Acetaminophen/oxyCODONE 325-5 MG Tab PO PRN ×3 (00:37→09:01)
[2017-10-16] MEDS: Prenatal Multivitamin with Calcium/Folic Acid/Iron Tab PO SCH (09:01)
[2017-10-16] MEDS: Ferrous Sulfate 325 MG Tab PO SCH (09:01)
[2017-10-16] MEDS: Simethicone 80 MG Tab.Chew PO SCH (09:03)
--- NOTE | 2017-10-16 09:50 | PN ---
DATE: 10/14/2017 Postoperative day #2, status post repeat low-transverse . SUBJECTIVE: The patient is tolerating p.o.'s, ambulating, urinating, and passing flatus. Bleeding is under control. OBJECTIVE: Vital Signs: Temperature 97.4, heart rate 88, blood pressure 97/61, and respiratory rate 16. Lungs: Clear to auscultation bilaterally. Heart: S1 and S2. Regular rate and rhythm. Abdomen: Firm uterus at the umbilicus. Aquacel dressing is dry and intact. Extremities: Trace pedal edema. No calf pain. ASSESSMENT: Postoperative day #2, status post repeat low-transverse section, complicated by anemia of acute blood loss. Hemoglobin dropping from 9.9 to 8.8. The patient is currently asymptomatic. She denies any chest pain, shortness of breath, or lightheadedness. PLAN: We will continue to follow clinically and closely. Potential discharge tomorrow. We will do a CBC in the morning. The patient understands and agrees with the above treatment plan. [facility] /[id number]
--- NOTE | 2017-10-16 09:53 | PN ---
DATE: 10/15/2017 Postop day #3 SUBJECTIVE: Patient is tolerating p.o.'s, was ambulating, urinating, and passing flatus. OBJECTIVE: Vital Signs: Temperature 98.3, heart rate 91, blood pressure 93/53, respiratory rate 16. Lungs: Clear to auscultation. Heart: S1, S2. Regular rate and rhythm. Abdomen: Firm fundus at approximately -1 below umbilicus. Aquacel dressing appears dry and intact. Extremities: No peripheral edema. No calf pain. LABORATORY DATA: White cell count 8.2, hemoglobin 7.9, platelets 200. ASSESSMENT AND PLAN: 1. Postop day #3, status post repeat low-transverse . 2. Anemia of acute blood loss. Hemoglobin dropping from 9.9, predelivery 8.8 from postop day #1. We will continue to follow clinically and closely. Repeat CBC tomorrow morning. Watch for any symptoms and possible discharge tomorrow. Discussed with the patient. In addition, baby is staying for another day due to concerns. Please see other dictation regarding to this. At this time, we will continue to follow clinically and closely. [facility] /[id number]
[2017-10-16] MEDS ORDERED: ePHEDrine 50 MG/ML SDV IV ONE (09:59)
[2017-10-16] MEDS ORDERED: Oxytocin/Normal Saline 30 UNIT/500 ML BAG IV ONE (09:59)
[2017-10-16] MEDS ORDERED: Ondansetron 4 MG/2 ML SDV IV ONE (09:59)
[2017-10-16] MEDS ORDERED: Ketorolac 30 MG/ML SDV IVPUSH ONE (09:59)
[2017-10-16] MEDS ORDERED: Morphine PF 1 MG/ML Amp ONE (09:59)
[2017-10-16] MEDS ORDERED: Bupivacaine 0.75%/D5W 2 ML Amp INJECT ONE (09:59)
[2017-10-16] MEDS ORDERED: Dexamethasone 4 MG/ML SDV IV ONE (09:59)
--- NOTE | 2017-10-16 10:00 | OBOUT ---
DATE: 10/12/2017 DATE AND TIME OF NST: Date: 10/12/2017. Time: 2135 hours to 2152 hours. REASON FOR NST: 1. Intrauterine 37 and 4/7 weeks by 20 and 5/7 ultrasound 37 and 5/7 weeks by last menstrual period. 2. Contractions, cervical change-labor. 3. Previous x5, request repeat low transverse . 4. Group B streptococcus unknown. 5. Limited care. 6. Positive UDS upon admit with positive methamphetamines and THC. 7. Anemia of with hemoglobin 9.9. 8. History of pyelonephritis in in May 2017. 9. G7, P5-0-1-5. NST INTERPRETATION: During this time period, heart tone baseline is approximately 135 and there are at least two 15 x 15 beat per minute accelerations, making this strip reactive. It is also noted to be reassuring. Tocometer reveals potential 3 to 4 contractions felt by patient and breathing through them. ASSESSMENT: 1. Nonstress test, reactive and reassuring. 2. Tocometer with contractions. PLAN: Please see H and P for further details. [facility] /[id number]
[2017-10-16 10:03] VITALS: BP 106/72
--- NOTE | 2017-10-17 09:59 | DISCH ---
ADMITTING DIAGNOSES: 1. Intrauterine at 37 and 4/7 weeks by 20 and 5/7-week ultrasound, 37 and 5/7 weeks by last menstrual period. 2. Previous section x5, requests repeat low-transverse section. 3. Contractions with cervical change, labor upon admission. 4. Group B Streptococcus negative on 09/20/2017. 5. Limited/insufficient care. 6. Positive urine drug screen upon admission for methamphetamines and marijuana with history of drug screen positive in the past. 7. Anemia of with hemoglobin 9.9 upon admission. 8. History of pyelonephritis in in 05/2017. 9. G7, P5-0-1-5. DISCHARGE DIAGNOSES: 1. Intrauterine at 37 and 4/7 weeks by 20 and 5/7-week ultrasound, 37 and 5/7 weeks by last menstrual period, delivered. 2. Previous section x5, requests repeat low-transverse section. 3. Contractions with cervical change, labor upon admission. 4. Group B Streptococcus negative on 09/20/2017. 5. Limited/insufficient care. 6. Positive urine drug screen upon admission for methamphetamines and marijuana with history of drug screen positive in the past. 7. Anemia of with hemoglobin 9.9 upon admission. 8. History of pyelonephritis in in 05/2017. 9. G7, P5-0-1-5. 10.Scar tissue superficial to the fascia, moderate to severe and mildly subfascially. 11.Anemia of acute blood loss. Hemoglobin dropping from 9.9 to 7.9 at its lowest postoperatively. PROCEDURES PERFORMED: Nonstress test followed by repeat low-transverse section on the date of admission. HISTORY OF PRESENT ILLNESS: Please see H and P. SUMMARY OF HOSPITAL COURSE: The patient was admitted on the above date with the above diagnoses and underwent a repeat low-transverse . Due to her previous C-sections with contractions with cervical change, this was done under spinal anesthetic with an EBL of 603 mL yielding a male with scores of 8 and 9, weighing 6 pounds 11 ounces (3030 g). Postoperative days #1 and 2, please see progress notes. During evaluations, hemoglobin was low at 7.9 on 10/15/2017. DISCHARGE EVALUATION: The patient is tolerating p.o.'s, ambulating, urinating, passing flatus, and requesting discharge. Awaiting Social Service's consult currently. OBJECTIVE: Vital Signs: Temperature 98.2, heart rate 86, blood pressure 110/70, and respiratory rate is 16. Lungs: Clear to auscultation bilaterally. Heart: S1 and S2. Regular rate and rhythm. Pelvic: Firm uterus -1 below umbilicus. Aquacel dressing dry and intact. Extremities: No peripheral edema. No calf pain. LABORATORY DATA: White cell count 6.9, hemoglobin 8, and platelets 215. CONDITION ON DISCHARGE COMPARED TO CONDITION ON ADMISSION: Improved. DISCHARGE INSTRUCTIONS: Diet as tolerated. Activity; no lifting more than 20 pounds. No sit-ups, straining, and pelvic rest for the next 6 weeks with immediate return to fertility discussed with the patient. Reasons to return or go to the emergency room were discussed with the patient in detail including, but not limited to, temperature greater than 100.4, foul- smelling discharge, red hot tender breasts, increased vaginal bleeding or increasing pain, drainage, or redness around the incision. DISCHARGE MEDICATIONS: 1. Lper-qzr-eyeieyt Tylenol and ibuprofen for pain. 2. Percocet 5/325 one to two q.6 hours p.r.n., #20, no refills. 3. Iron sulfate 325 b.i.d. x6 weeks, dispense q.s., no refills. 4. Colace 100 mg b.i.d. p.r.n., dispense 60, one refill. 5. Elective dual breast pump. Discussed medications, adverse and wanted effects, as well as precautions with driving. FOLLOWUP: Follow up on , 10/19/2017, for staple removal as well as appointment with her baby. The patient understands and agrees with the above treatment plan. Discussed with her in the interim reasons to return or go to the emergency room in regard to her . [facility] /[id number]
== END 2017-10-16 10:00 | disposition home or self-care (01) | DRG 765 ==
LOC: DL.OBCHECK 20:28 → DL.OB 21:56 → OBSVTOIN 23:19 → DL.OB 23:19 → DL.MS 10-14 08:35
PROVIDERS: ADMIT Family Medicine; ATTEND Family Medicine
PROC: 10D00Z1 Extraction of Products of Conception, Low, Open Approach (ICD-10-PCS; principal; 2017-10-12)
PROC: 6A550ZT Pheresis of Cord Blood Stem Cells, Single (ICD-10-PCS; 2017-10-12)
PROC: 4A0HX4Z Measurement of Products of Conception, Cardiac Electrical Activity, External Approach (ICD-10-PCS; 2017-10-12)
DX: O34.211 Maternal care for low transverse scar from previous cesarean delivery (principal); D62 Acute posthemorrhagic anemia; O99.324 Drug use complicating childbirth; Z3A.37 37 weeks gestation of pregnancy; Z37.0 Single live birth; O99.02 Anemia complicating childbirth; F12.90 Cannabis use, unspecified, uncomplicated; F15.90 Other stimulant use, unspecified, uncomplicated; Z88.0 Allergy status to penicillin; Z87.891 Personal history of nicotine dependence
CPT/HCPCS: 36415; 80305-QW; 81001; 85027; 86592; 86762; 86803; 86850; 86900; 86901; 87081; 87389; 90715; A9270-GY; J1100; J1580; J1885; J2274; J2405; J2590; J3490; J7050; J7120

== ENCOUNTER 2021-03-09 15:32 | Emergency (ER) | payer MEDICAID ==
[2021-03-09 17:04] VITALS: BP 127/86; PULSE 110
[2021-03-09 17:37] LABS: AMPHETAMINES,URINE POSITIVE (NEGATIVE); BARBITURATES,URINE NEGATIVE (NEGATIVE); BENZODIAZEPINE,URINE NEGATIVE (NEGATIVE); MDMA (ECSTASY), URINE POSITIVE (NEGATIVE); METHADONE,URINE NEGATIVE (NEGATIVE); METHAMPHETAMINES,URINE POSITIVE (NEGATIVE); OPIATES,URINE NEGATIVE (NEGATIVE); OXYCODONE,URINE NEGATIVE (NEGATIVE); PHENCYCLIDINE,URINE NEGATIVE (NEGATIVE); TCA,URINE NEGATIVE (NEGATIVE)
[2021-03-09 17:39] LABS: ACETAMINOPHEN 0 ug/mL (10-30 (Therapeutic)); ANION GAP 15.6 mEq/L (7-13); CHLORIDE,CL 102 mmol/L (98-107); SODIUM,NA 141 mmol/L (136-145)
[2021-03-09] MEDS ORDERED: LORazepam 2 MG/ML SDV IM ONE (17:42)
[2021-03-09 18:23] LABS: RESPIRATORY SYNCYTIAL VIR NAA NEGATIVE (NEGATIVE)
[2021-03-09 18:25] LABS: CORONAVIRUS COVID-19 NAA POSITIVE (NEGATIVE)
== END 2021-03-09 18:05 | disposition other institution (70) ==
LOC: DL.ED 15:32
DX: F10.230 Alcohol dependence with withdrawal, uncomplicated (principal); F19.90 Other psychoactive substance use, unspecified, uncomplicated; Z88.0 Allergy status to penicillin; Y90.4 Blood alcohol level of 80-99 mg/100 ml; Z20.822 Contact with and (suspected) exposure to COVID-19
CPT/HCPCS: 0241U; 36415; 80053; 80143; 80179; 80305; 80307; 81025; 85025; 96372; 99284; J2060

== ENCOUNTER 2023-12-02 12:19 | Emergency (ER) | payer MEDICAID ==
[2023-12-02 12:41] VITALS: BP 119/56; PULSE 94
[2023-12-02 13:36] LABS: BASOPHILS PERCENT AUTO 0.2 % (0.0-1.0); EOSINOPHILS PERCENT AUTO 8.6 % (1.0-3.0); HEMOGLOBIN 10.4 g/dL (12.0-16.0); LYMPHOCYTES PERCENT AUTO 35.9 % (20.5-50.1); MEAN CORPUSCULAR HEMOGLOBIN 29.5 pg (27.0-34.0); MEAN CORPUSCULAR HGB CONC 33.5 g/dL (33.0-35.0); MEAN CORPUSCULAR VOLUME 88.1 fL (80-100); MONOCYTES PERCENT AUTO 8.2 % (2-8); NEUTROPHILS PERCENT AUTO 47.1 % (42.2-75.2); PLATELET COUNT,PLT 266 10^3/uL (150-450); RED BLOOD CELL COUNT 3.52 10^6/uL (4.2-5.4)
[2023-12-02 14:21] LABS: ALANINE AMINOTRANSFERASE,ALT 45 U/L (14-59); ALBUMIN 3.3 g/dL (3.4-5.0); ALKALINE PHOSPHATASE 121 U/L (46-116); ANION GAP 10.8 mEq/L (7-13); ASPARTATE AMNIOTRANSFERASE,AST 46 U/L (15-37); BILIRUBIN TOTAL 0.6 mg/dL (0.2-1.0); BLOOD UREA NITROGEN,BUN 7 mg/dL (7-18); BUN/CREATININE RATIO 9.2 (No establ ref range); CALCIUM 8.1 mg/dL (8.5-10.1); CARBON DIOXIDE,CO2 26 mmol/L (21-32); CHLORIDE,CL 104 mmol/L (98-107); CREATININE 0.76 mg/dL (0.55-1.02); EST CRCL DRUG DOSING (CG) 76.33 mL/min; ESTIMATED GFR 107 mL/min (>=60); ETHANOL BLOOD MEDICAL < 3 mg/dL (0); GLUCOSE RANDOM 123 mg/dL (70-99); MAGNESIUM 1.6 mg/dL (1.8-2.4); POTASSIUM,K 3.8 mmol/L (3.5-5.1); PROTEIN TOTAL,TP 6.6 g/dL (6.4-8.2); SODIUM,NA 137 mmol/L (136-145)
[2023-12-02] MEDS: Ketorolac 30 MG/ML SDV IM ONE (14:38)
[2023-12-02 14:48] LABS: APPEARANCE,URINE CLEAR (CLEAR); BILIRUBIN,URINE NEGATIVE (NEGATIVE); COLOR,URINE YELLOW (YELLOW); GLUCOSE,URINE NEGATIVE (NEGATIVE); KETONES,URINE NEGATIVE (NEGATIVE); LEUKOCYTE ESTERASE,URINE NEGATIVE (NEGATIVE); NITRITE,URINE NEGATIVE (NEGATIVE); OCCULT BLOOD,URINE NEGATIVE (NEGATIVE); PH,URINE 5.5 (5.0-9.0); PROTEIN,URINE NEGATIVE (NEGATIVE); UROBILINOGEN,URINE 0.2 mg/dL (0.2-1.0)
[2023-12-02 14:51] LABS: AMPHETAMINES,URINE NEGATIVE (NEGATIVE); BARBITURATES,URINE NEGATIVE (NEGATIVE); BENZODIAZEPINE,URINE NEGATIVE (NEGATIVE); MDMA (ECSTASY), URINE NEGATIVE (NEGATIVE); METHADONE,URINE NEGATIVE (NEGATIVE); METHAMPHETAMINES,URINE POSITIVE (NEGATIVE); OPIATES,URINE NEGATIVE (NEGATIVE); OXYCODONE,URINE NEGATIVE (NEGATIVE); PHENCYCLIDINE,URINE NEGATIVE (NEGATIVE); TCA,URINE NEGATIVE (NEGATIVE)
[2023-12-02] MEDS: Dexamethasone 4 MG/ML SDV PO ONE (15:06)
== END 2023-12-02 15:14 | disposition home or self-care (01) ==
LOC: DL.ED 12:19
DX: M25.531 Pain in right wrist (principal); M25.532 Pain in left wrist; F15.90 Other stimulant use, unspecified, uncomplicated; Z88.0 Allergy status to penicillin
CPT/HCPCS: 36415; 80053; 80305-QW; 80307; 81003; 81025; 82607; 83735; 84443; 84484; 85025; 85651; 86140; 93005; 93010; 96372; 99284; J1100; J1885

== ENCOUNTER 2024-09-30 09:19 | Emergency (ER) | payer MEDICAID ==
[2024-09-30] MEDS: Ondansetron 4 MG/2 ML SDV IVPUSH ONE (10:05)
[2024-09-30 10:14] LABS: APPEARANCE,URINE CLEAR (CLEAR); GLUCOSE,URINE NEGATIVE (NEGATIVE); OCCULT BLOOD,URINE TRACE-INTACT (NEGATIVE)
[2024-09-30 10:15] LABS: BASOPHILS PERCENT AUTO 0.3 % (0.0-1.0); EOSINOPHILS PERCENT AUTO 1.1 % (1.0-3.0); LYMPHOCYTES PERCENT AUTO 18.0 % (20.5-50.1); MONOCYTES PERCENT AUTO 4.5 % (2-8); NEUTROPHILS PERCENT AUTO 76.1 % (42.2-75.2); PLATELET COUNT,PLT 147 10^3/uL (150-450); RED BLOOD CELL COUNT 4.40 10^6/uL (4.2-5.4); WHITE BLOOD CELL COUNT,WBC 10.0 10^3/uL (5.0-10.0)
[2024-09-30 10:22] LABS: EPITHELIAL CELLS,URINE MANY /HPF (NOT SEEN)
[2024-09-30 10:23] LABS: A/G RATIO 1.0; ALANINE AMINOTRANSFERASE,ALT 25 U/L (14-59); ASPARTATE AMNIOTRANSFERASE,AST 20 U/L (15-37); BILIRUBIN TOTAL 0.4 mg/dL (0.2-1.0); BLOOD UREA NITROGEN,BUN 11 mg/dL (7-18); CARBON DIOXIDE,CO2 26 mmol/L (21-32); CHLORIDE,CL 101 mmol/L (98-107); CREATININE 0.65 mg/dL (0.55-1.02); EST CRCL DRUG DOSING (CG) 88.42 mL/min; GLUCOSE RANDOM 147 mg/dL (70-99); POTASSIUM,K 3.5 mmol/L (3.5-5.1); PROTEIN TOTAL,TP 8.5 g/dL (6.4-8.2); SODIUM,NA 138 mmol/L (136-145)
[2024-09-30 10:25] LABS: ESTIMATED GFR 119 mL/min (>=60)
[2024-09-30 10:26] LABS: HCG QUALITATIVE,SERUM NEGATIVE (NEGATIVE)
[2024-09-30] MEDS: Iopamidol 612 MG/ML 100 ML Bottle IVPUSH ONE (11:07)
[2024-09-30 11:12] LABS: AMPHETAMINES,URINE NEGATIVE (NEGATIVE); BARBITURATES,URINE NEGATIVE (NEGATIVE); MDMA (ECSTASY), URINE NEGATIVE (NEGATIVE); METHAMPHETAMINES,URINE POSITIVE (NEGATIVE); OPIATES,URINE NEGATIVE (NEGATIVE); OXYCODONE,URINE NEGATIVE (NEGATIVE); PHENCYCLIDINE,URINE NEGATIVE (NEGATIVE); TCA,URINE NEGATIVE (NEGATIVE)
[2024-09-30 13:57] VITALS: BP 179/100; PULSE 46
== END 2024-09-30 14:25 ==
LOC: DL.ED 09:19
DX: K80.50 Calculus of bile duct without cholangitis or cholecystitis without obstruction (principal); Z88.0 Allergy status to penicillin
CPT/HCPCS: 36415; 74177; 76705; 80053; 80305; 81001; 83690; 84484; 84703; 85025; 93005; 96361; 96374; 96375; 96376; 99285; J1171; J2405; J7030; Q9967